=== PATIENT | male | born 1970 ===

== ENCOUNTER 2018-07-29 20:09 | Emergency (ER) | payer SELFPAY ==
[2018-07-29 20:37] VITALS: BP 154/79; PULSE 62; RESP 20; TEMP 98.8; O2SAT 98
--- NOTE | 2018-07-29 20:56 | C.PDOC ---
History Of Present Illness 48 y/o male presents to the ED complaining of 3 week history of URI symptoms including cough and congestion. Patient states he was taking OTC medication and tea, felt better, but then 3-4 days ago symptoms recurred. He presents today complaining of rhinorrhea with occasional epistaxis, as well as sore throat. Denies any known sick contacts. Denies any fever, chills, SOB, chest pain, nausea, vomiting, or diarrhea. Admits to of seasonal allergies for which patient takes Claritin. Time Seen by Provider: 07/29/18 20:56 Chief Complaint (Nursing): ENT Problem History Per: Patient History/Exam Limitations: None Onset/Duration Of Symptoms: Days Current Symptoms Are (Timing): Still Present Symptoms Have Been: Episodic Past Medical History Reviewed: Historical Data, Nursing Documentation, Vital Signs Vital Signs: Last Vital Signs Temp 98.8 F 07/29/18 20:29 Pulse 62 07/29/18 20:29 Resp 20 07/29/18 20:29 BP 154/79 H 07/29/18 20:29 Pulse Ox 98 07/29/18 20:29 - Medical History PMH: No Chronic Diseases Surgical History: No Surg Hx Family History: States: No Known Family Hx - Social History Hx Alcohol Use: No Hx Substance Use: No - Immunization History Hx Tetanus Toxoid Vaccination: Yes Hx Influenza Vaccination: Yes Hx Pneumococcal Vaccination: No Review Of Systems Constitutional: Negative for: Fever, Chills ENT: Positive for: Nose Discharge (with occasinal epistaxis), Nose Congestion Cardiovascular: Negative for: Chest Pain Respiratory: Positive for: Cough. Negative for: Shortness of Breath, Wheezing Gastrointestinal: Negative for: Nausea, Vomiting, Diarrhea Neurological: Negative for: Weakness, Dizziness Physical Exam - Physical Exam Appears: Non-toxic, No Acute Distress Skin: Normal Color, Warm, Dry Head: Atraumatic, Normacephalic Eye(s): bilateral: Normal Inspection, PERRL, EOMI Nose: Normal, Discharge (clear rhinorrhea bilaterally), No Epistaxis, No Septal Hematoma Throat: Normal (uvula midline), No Erythema, No Exudate Neck: Normal ROM Chest: Symmetrical Cardiovascular: Rhythm Regular Respiratory: Normal Breath Sounds, No Accessory Muscle Use Extremity: Bilateral: Atraumatic, Normal ROM Neurological/Psych: Oriented x3, Normal Speech ED Course And Treatment O2 Sat by Pulse Oximetry: 98 (on RA) Pulse Ox Interpretation: Normal Medical Decision Making Medical Decision Making: Impression: viral URI Patient with no epistaxis throughout ED OBS, resting comfortably, and is in no acute distress. Patient given rx for Tylenol, cough medication, and saline spray. Patient was instructed to follow up with physician/clinic in 1-2 days for further evaluation. Disposition Counseled Patient/Family Regarding: Diagnosis, Need For Followup, Rx Given - Disposition Referrals: [facility] [Outside] Disposition: HOME/ ROUTINE Disposition Time: 21:18 Condition: STABLE Additional Instructions: Continue Claritin for allergies and add Flonase, saline gel, and saline spray daily Tessalon Perles three times a day for cough Follow up with PMD in 1-2 days Return to Ed if symptoms worsen Prescriptions: Acetaminophen [Tylenol] 325 mg PO Q6 PRN #30 capsule PRN Reason: Fever >100.4 F Benzonatate [Tessalon Perles] 100 mg PO TID #30 sgl Fluticasone Nasal [Flonase] 1 spr NS DAILY #1 bottle Sodium Chloride [Avon Saline] 1 spray NS BID #1 bottle Sodium Chloride/Aloe Vera [Avon Saline Nasal] 1 inch TP HS #1 tube Instructions: Viral Upper Respiratory Infection, Adult (DC) Forms: [place] (Irish) - Clinical Impression Clinical Impression: Viral URI with cough - PA / [employer]OOK / Resident Statement MD/DO has reviewed & agrees with the documentation as recorded. - Scribe Statement The provider has reviewed the documentation as recorded by the Scribe Yady Stephenson All medical record entries made by the Scribe were at my direction and personally dictated by me. I have reviewed the chart and agree that the record accurately reflects my personal performance of the history, physical exam, medical decision making, and the department course for this patient. I have also personally directed, reviewed, and agree with the discharge instructions and disposition.
== END 2018-07-29 21:40 | disposition home or self-care (01) ==
LOC: C.ER 20:09
DX: J06.9 Acute upper respiratory infection, unspecified (principal)